=== PATIENT | male | born 1935 | race Caucasian/White ===

== ENCOUNTER 2018-06-27 08:07 | Day surgery (SDC) | payer OTHER ==
[~2018-06-27 08:07] MED LIST: Bupivacaine 0.25%/EPINEPHrine 1:200,000 10 ML SDV INJECT ONE; Bupivacaine 0.25%/EPINEPHrine 1:200,000 10 ML SDV ONE; Lactated Ringers 1,000 ML IV SCH; Lidocaine 2% 5 ML SDV ONE; Propofol 200 MG/20 ML SDV ONE; Tetracaine 0.5% Ophth Soln 15 ML Bottle ONE; ceFAZolin 2 GM in Premix Bag 1 BAG IV ONE; fentaNYL 100 MCG/2 ML SDV ONE; traMADol 50 MG Tab PO PRN
--- NOTE | 2018-06-27 10:11 | PCM.PREANE ---
Preanesthetic Assessment - Procedure Proposed Procedure: Excision crate lesion right upper medial cheek - Anesthesia/Transfusion/Family Hx Anesthesia History: Prior Anesthesia Without Reaction Family History of Anesthesia Reaction: No Transfusion History: No Prior Transfusion(s) Intubation History: Unknown - Review of Systems General: No Symptoms Pulmonary: Other (old smoker; COPD) Cardiovascular: No Symptoms Gastrointestinal: No Symptoms Neurological: No Symptoms Other: Reports: None - Physical Assessment NPO Status Date: 06/26/18 NPO Status Time: 22:00 Respiratory Rate: 16 Vital Signs: Last Vital Signs Temp 97.3 F 06/27/18 08:35 Pulse 44 L 06/27/18 08:35 Resp 16 06/27/18 08:35 BP 157/72 H 06/27/18 08:35 Pulse Ox Height: 5 ft 8 in Weight: 147 lb ASA Class: 2 Mental Status: Alert & Oriented x3 Airway Class: Mallampati = 1 Dentition: Reports: Normal Dentition, Partial (lower), [place](s) Thyro-Mental Finger Breadths: 3 Mouth Opening Finger Breadths: 3 ROM/Head Extension: Full Lungs: Clear to Auscultation, Normal Respiratory Effort Cardiovascular: Regular Rate, Regular Rhythm, No Murmurs - Allergies Allergies/Adverse Reactions: Allergies Allergy/AdvReac Type Severity Reaction Status Date / Time Latex, Natural Rubber Allergy Itching Verified 06/25/18 12:05 - Blood Blood Available: No Product(s) Available: None - Anesthesia Plan Pre-Op Medication Ordered: None - Acknowledgements Anesthesia Type Planned: MAC (perhaps could be more convenient for all with General - TBD with ) Pt an Appropriate Candidate for the Planned Anesthesia: Yes Alternatives and Risks of Anesthesia Discussed w Pt/Guardian: Yes Pt/Guardian Understands and Agrees with Anesthesia Plan: Yes PreAnesthesia Questionnaire HEENT History: Reports: Cataract Other HEENT History: uses reading glasses, has lower removable dental bridge Cardiovascular History: Reports: Other (See Below) Other Cardiovascular History: hx of rheumatic fever Musculoskeletal History: Reports: Fracture Other Musculoskeletal History: hx of fx toe Neurological History: Reports: Concussion Oncologic (Cancer) History: Reports: Basal Cell Carcinoma Other Oncologic History: hx of basal cell on chest - Past Surgical History HEENT Surgical History: Reports: Cataract Surgery GI Surgical History: Reports: Cholecystectomy, Hernia, Inguinal Male Surgical History: Reports: TURP-Transurethral Resection of Prostate - SUBSTANCE USE Smoking Status *Q: Former Smoker Tobacco Use Within Last Twelve Months: No Days Per Week of Alcohol Use: 7 Number of Drinks Per Day: 1 Total Drinks Per Week: 7 Recreational Drug Use History: No - HOME MEDS Home Medications: Home Meds Finasteride 5 mg PO DAILY 06/25/18 [History] - CURRENT (IN HOUSE) MEDS Current Meds: Current Medications Lactated Ringer's (Ringers, Lactated) 1,000 mls @ 125 mls/hr IV ASDIRECTED [facility] Last Admin: 06/27/18 08:49 Dose: 125 mls/hr Tramadol HCl (Ultram) 50 mg PO Q4H PRN PRN Reason: Pain Discontinued Medications Bacitracin (Bacitracin Ophth Oint) Confirm Administered Dose 3.5 gm .ROUTE .STK- MED ONE Stop: 06/27/18 07:23 Bupivacaine HCl/Epinephrine Bitart (Marcaine 0.25%/Epinephrine 1:200,000) 10 ml INJECT ONETIME ONE Stop: 06/27/18 08:01 Bupivacaine HCl/Epinephrine Bitart (Marcaine 0.25%/Epinephrine 1:200,000) Confirm Administered Dose 10 ml .ROUTE .STK-MED ONE Stop: 06/27/18 07:23 Fentanyl (Sublimaze) Confirm Administered Dose 100 mcg .ROUTE .STK-MED ONE Stop: 06/27/18 07:03 Cefazolin Sodium/Dextrose 2 gm (/ Premix) 50 mls @ 100 mls/hr IV ONETIME ONE Stop: 06/27/18 08:29 Lidocaine (Xylocaine-Mpf 2%) Confirm Administered Dose 5 ml .ROUTE .STK-MED ONE Stop: 06/27/18 07:03 Propofol (Diprivan 20 Ml) Confirm Administered Dose 200 mg .ROUTE .STK-MED ONE Stop: 06/27/18 07:03 Tetracaine (Tetracaine 0.5% Ophth Soln) Confirm Administered Dose 15 ml .ROUTE .STK-MED ONE Stop: 06/27/18 07:25
[2018-06-27] MEDS ORDERED: Sodium Chloride 0.9% 20 ML ONE (10:20)
[2018-06-27] MEDS ORDERED: ceFAZolin 1 GM Vial ONE (10:20)
[2018-06-27] MEDS ORDERED: Glycopyrrolate 0.2 MG/ML SDV ONE (10:26)
[2018-06-27] MEDS ORDERED: fentaNYL 100 MCG/2 ML SDV ONE (10:41)
[2018-06-27] MEDS ORDERED: diphenhydrAMINE 50 MG/ML SDV ONE (10:42)
[2018-06-27] MEDS ORDERED: Bupivacaine 0.25%/EPINEPHrine 1:200,000 10 ML SDV ONE (11:16)
--- NOTE | 2018-06-27 12:10 | PCM48HPAN ---
Post Anesthesia Note - EVALUATION WITHIN 48HRS OF ANESTHETIC Vital Signs in Normal Range: Yes Patient Participated in Evaluation: Yes Respiratory Function Stable: Yes Airway Patent: Yes Cardiovascular Function Stable: Yes Hydration Status Stable: Yes Pain Control Satisfactory: Yes Nausea and Vomiting Control Satisfactory: Yes Mental Status Recovered: Yes Resp Rate: 16
--- NOTE | 2018-06-27 13:19 | PCM.OPNOTE ---
- General Post-Op/Procedure Note Date of Surgery/Procedure: 06/27/18 Operative Procedure(s): excision of left cheek basal cell 2cm round excision with frozen sections and v-y advancement flap - total area flap + defect = 10cm2 Pre Op Diagnosis: left cheek basal cell Post-Op Diagnosis: Same Anesthesia Technique: Local, MAC Primary Surgeon: Maddy Walter Pretzel Twister: Lisandra Abarca Complications: None Condition: Good
--- NOTE | 2018-06-28 00:23 | OR ---
SURGEON: EDGARDO DUBON MD DATE OF PROCEDURE: 06/26/2018 PREOPERATIVE DIAGNOSIS: Left cheek basal cell. POSTOPERATIVE DIAGNOSIS: Left cheek basal cell. PROCEDURE: Excision of left cheek basal cell 2 cm round excision with frozen sections and V - Y advancement flap with total area of the flap plus the defect being 10 cm2. BOOT LACE CUTTER MACHINE: CHRISTIANO Carson REASON FOR AND ROLE OF BOOT LACE CUTTER MACHINE: Retraction, prepping, draping, and wound closure assistance. ANESTHESIA: Local MAC. INDICATIONS: Mr. Christianson is an 82-year-old gentleman with a very large basal cell carcinoma on the left cheek. We discussed risks and benefits of excision with frozen section and whatever we needed to do for closure. Likely this would be a V-Y advancement flap unless it is more extensive, then we would proceed with a [place] flap. Risks and benefits of both were discussed with him and he was in agreement to proceed. Risks were including, but not limited to, bleeding, infection, damage to underlying or overlying structures, possible need for future interventions, and possible scarring. PROCEDURE IN DETAIL: After informed consent was obtained and placed on the chart, the patient brought in to the operating theater and laid in supine position. After adequate local MAC anesthesia was obtained, the area was prepped and draped and a time-out was completed to confirm side and site. Marcaine 0.25% with epinephrine was injected into an infraorbital nerve block in a field block of the area. Once adequately anesthetized, the left cheek basal cell was excised for a total diameter of 2 cm in a circular fashion and sent for pathology. Marking stitch was placed at 12 o'clock. Pathology returned as basal cell carcinoma with negative margins. Once adequate hemostasis was obtained, a V-Y advancement flap was designed in the nasolabial fold and the total area of the flap plus the defect was 10 cm2. Once adequately designed, dissection was carried through the skin around the V-Y flap and then this was carefully dissected for enough advancement that it could easily cover the defect without tension on the lower eyelid. This was brought together and deep 5-0 Monocryl stitches were used for the dermis and a running 6 - 0 Prolene in bursts was used for the skin. Once adequately closed, the wound was dressed with bacitracin. The patient tolerated this well. All counts and needles were correct at the end of the case. FOLLOWUP INSTRUCTIONS: The patient will see us in 7 days or sooner if any problems, questions, or concerns. He was given a prescription for pain control. KAMRAN / ANKUR /[id number] MTDD
== END 2018-06-27 13:00 | disposition home or self-care (01) ==
LOC: MW.SDS 08:07
PROVIDERS: ATTEND Plastic Surgery
DX: C44.319 Basal cell carcinoma of skin of other parts of face (principal); J44.9 Chronic obstructive pulmonary disease, unspecified; Z87.891 Personal history of nicotine dependence; Z79.899 Other long term (current) drug therapy; Z91.040 Latex allergy status
CPT/HCPCS: 14040; J0690; J1200; J2704; J3010; J3490; J7120; 88305; 88331; A9270-GY